=== PATIENT | male | born 1975 | race Caucasian/White ===

== ENCOUNTER 2017-06-21 17:26 | Observation (INO) ==
[2017-06-21] MEDS ORDERED: ACETAMINOPHEN 325 MG TABLET PO PRN (19:11)
[2017-06-21] MEDS ORDERED: ONDANSETRON 4 MG/2 ML VIAL IV PRN (19:11)
[2017-06-21 19:59] LABS: Basophils % 0.5 % (0.0-0.8); Eosinophils # 0.1 10*3/uL (0.0-0.87); Eosinophils % 1.2 % (0.00-10.9); Hematocrit 45.1 VOL% (42.0-52.0); Hemoglobin 15.2 GM/DL (14.0-18.0); Immature Granulocytes % 0.5 %; Immature Granulocytes Absolute 0.04 #; Lymphocytes # 1.8 10*3/uL (1.4-4.0); Lymphocytes % 21.5 % (21.2-54.2); Mean Corpuscular HGB Conc 33.7 GM/DL (32-36); Mean Corpuscular Hemoglobin 30 PG (27-34); Mean Corpuscular Volume 88.3 FL (87-102); Mean Platelet Volume 9.6 FL (9.6-12.0); Monocytes # 0.8 10*3/uL (0.11-0.8); Monocytes % 9.9 % (1.7-12.7); Neutrophils # 5.5 10*3/uL (1.4-7.4); Neutrophils % 66.4 % (38.7-73.9); Platelet Count 309 T/CUMM (130-400); Red Blood Count 5.11 MC/CUMM (3.8-5.5); Red Cell Distribution Width 13.2 % (9.3-17.3); White Blood Count 8.3 T/CUMM (4-12)
[2017-06-21 20:19] LABS: Osmolality,Calculated 276.5 MOS/KG (273-304); Potassium 4.3 MMOL/L (3.5-5.1)
[2017-06-22] MEDS: LACTATED RINGERS 1,000 ML IV SCH ×3 (06:24→21:38)
[2017-06-22] MEDS ORDERED: cefOXitin 2,000 MG in SYRINGE 1 EACH IV ONE ×2 (06:36→07:00)
[2017-06-22] MEDS ORDERED: TISSUE ADHESIVE 1 EACH APPLICATOR TOP ONE (11:14)
[2017-06-22] MEDS: HYDROmorphone 2 MG/1 ML VIAL IV PRN ×2 (12:00→12:05)
[2017-06-22] MEDS ORDERED: HYDROmorphone 2 MG/1 ML VIAL ONE (12:01)
[2017-06-22] MEDS ORDERED: ONDANSETRON 4 MG/2 ML VIAL ONE ×2 (12:01→12:03)
[2017-06-22] MEDS ORDERED: PROPOFOL 200 MG/20 ML VIAL IV ONE (12:03)
[2017-06-22] MEDS ORDERED: fentaNYL 100 MCG/2 ML VIAL ONE (12:03)
[2017-06-22] MEDS ORDERED: ACETAMINOPHEN 1,000 MG/100 ML VIAL IV ONE (12:03)
[2017-06-22] MEDS ORDERED: NEOSTIGMINE 10 MG/10 ML VIAL ONE (12:03)
[2017-06-22] MEDS ORDERED: GLYCOPYRROLATE 0.4 MG/2 ML VIAL ONE (12:03)
[2017-06-22] MEDS ORDERED: DESFLURANE 1 UNIT/15 MINUTE INH ONE (12:03)
[2017-06-22] MEDS ORDERED: MIDAZOLAM 2 MG/2 ML VIAL ONE (12:03)
[2017-06-22] MEDS ORDERED: LACTATED RINGERS 1,000 ML IV ONE (12:04)
[2017-06-22] MEDS ORDERED: ROCURONIUM 100 MG/10 ML VIAL IV ONE (12:04)
[2017-06-22] MEDS ORDERED: ONDANSETRON 4 MG/2 ML VIAL IV PRN (12:05)
[2017-06-22] MEDS ORDERED: GLUCAGON 1 MG VIAL IM PRN (12:50)
[2017-06-22] MEDS ORDERED: DEXTROSE 50% 25 GM/50 ML VIAL IV PRN (12:50)
[2017-06-22] MEDS: PANTOPRAZOLE 40 MG TABLET PO SCH (14:05)
[2017-06-22] MEDS: INSULIN REGULAR 100 UNIT/ML SUBCUT SCH ×2 (17:03→21:37)
[2017-06-22] MEDS ORDERED: busPIRone 5 MG TABLET PO SCH (21:00)
[2017-06-23] MEDS: LACTATED RINGERS 1,000 ML IV SCH ×2 (02:01→04:33)
[2017-06-23 06:44] VITALS: BP 114/64
[2017-06-23] MEDS ORDERED: MAGNESIUM GLUCONATE 500 MG TABLET PO SCH (09:00)
[2017-06-23] MEDS ORDERED: CYANOCOBALAMIN 500 MCG TABLET PO SCH (09:00)
[2017-06-23] MEDS ORDERED: ARIPiprazole 5 MG TABLET PO SCH (09:00)
[2017-06-23] MEDS ORDERED: MULTIVITAMIN (BEROCCA) TABLET PO SCH (09:00)
[2017-06-23] MEDS ORDERED: MULTIVITAMIN (CENTRUM) TABLET PO SCH (09:00)
[2017-06-23] MEDS: INSULIN REGULAR 100 UNIT/ML SUBCUT SCH (10:27)
[2017-06-23] MEDS: PANTOPRAZOLE 40 MG TABLET PO SCH (10:28)
== END 2017-06-23 09:35 | disposition home or self-care (01) ==
LOC: N.3E
PROVIDERS: ADMIT Surgery; ATTEND Surgery